=== PATIENT | male | born 1990 | race Two or more races ===

== ENCOUNTER 2020-04-28 23:19 | Emergency (ER) | payer OTHER ==
[~2020-04-28] VITALS: Ht 182.9 cm; Wt 77.1 kg
== END 2020-04-29 14:03 | disposition home or self-care (01) ==
LOC: ER 23:19
DX: J02.9 Acute pharyngitis, unspecified (principal); R50.9 Fever, unspecified

== ENCOUNTER 2021-02-10 22:13 | Emergency (ER) | payer OTHER ==
[~2021-02-10] VITALS: Ht 182.9 cm; Wt 74.4 kg
[2021-02-11] MEDS ORDERED: BACTRIM 400-801 EACH PO (00:47)
[2021-02-11] MEDS ORDERED: KETO10TA2 PO (00:47)
[2021-02-11] MEDS ORDERED: MUPIROCIN22 GM TOP (00:47)
== END 2021-02-11 | disposition home or self-care (01) ==
LOC: ER 22:13
DX: L08.89 Other specified local infections of the skin and subcutaneous tissue (principal); B95.62 Methicillin resistant Staphylococcus aureus infection as the cause of diseases classified elsewhere

== ENCOUNTER → 2022-12-08 | Emergency (ER) | payer OTHER ==
[~2022-12-08] VITALS: Ht 182.9 cm; Wt 78.9 kg
[~2022-12-08] MED LIST: BACTRIM 400-801 EACH PO; CEPHALEXIN500 M1; KETO10TA2 PO; MUPIROCIN22 GM TOP
== END | disposition home or self-care (01) ==
LOC: ER 21:00
DX: Z98.890 Other specified postprocedural states (principal)